=== PATIENT | male | born 1990 | race American Indian/Alaskan Native ===

== ENCOUNTER 2016-08-09 18:14 | Emergency (ER) | payer SELFPAY ==
--- NOTE | 2016-08-09 18:59 | Emergency Department Report ---
Chief Complaint: Fall Stated Complaint: FALL/LIP/HEAD/NECK INJURY Time Seen by Provider: 08/09/16 18:56 - HPI History of Present Illness: 26 state he was outside and slip and fell .pt state he loss consciousness and can not remember anything that happen after the fall .pt state that he call a [employer] spacelift to bring to hospital .pt voice complain of headache .05/18. - ROS Review of Systems: per HPI - Exam Vital Signs: Vital Signs 08/09/16 18:24 Temperature 98.8 F Pulse Rate 84 Respiratory 16 Rate Blood Pressure 109/75 O2 Sat by Pulse 98 Oximetry Physical Exam: GENERAL: The patient is well-developed and well-nourished. Patient is in NAD. HENT: Normocephalic. Atraumatic. Patient has moist mucous membranes. Throat: No erythema, swelling or exudates. EYES: Extraocular motions are intact, PERRL NECK: Supple. No meningitic signs are noted. There is no adenopathy noted. CHEST/LUNGS: Clear to auscultation bilaterally. No wheezing, rales or rhonchi noted. There is no respiratory distress noted. HEART/CARDIOVASCULAR: Regular rate and rhythm. Normal S1 S2. No murmurs, rubs , clicks, or gallops. ABDOMEN: Abdomen is soft, nontender.. Bowel sounds normoactive. There is no abdominal distention. Negative rebound tenderness. Negative Rovsing. : Deferred. SKIN: There is no rash. There is no edema. There is no diaphoresis. NEURO: The patient is A&Ox3. The patient has no focal neurologic deficits. MUSCULOSKELETAL: There is no tenderness or deformity. There is no limitation range of motion. PSYCH: Pt has appropriate mood and affect. MSE screening note: Focused history and physical exam performed. Due to findings the following was ordered: ED Disposition for MSE Condition: Stable
--- NOTE | 2016-08-09 19:58 | Cat Scan Report ---
FINAL REPORT PROCEDURE: CT head without contrast. TECHNIQUE: Computerized tomography of the head was performed without contrast material. HISTORY: Loss of consciousness. COMPARISON: No prior studies are available for comparison. FINDINGS: The ventricles are normal in size. The dhillon matter and white matter appear normal. There are no mass lesions. There is no intracranial hemorrhage. The calvarium appears intact. The mastoid air cells are clear. There is mucosal thickening in the left maxillary sinus. IMPRESSION: Normal study of the brain. Left maxillary sinus mucosal thickening.
[2016-08-09] MEDS ORDERED: PHENERGAN PO ONE (20:25)
[2016-08-09] MEDS ORDERED: PERCOCET 5/325 PO ONE (20:25)
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
--- NOTE | 2016-08-09 21:31 | Cat Scan Report ---
FINAL REPORT PROCEDURE: CT facial bones without contrast. TECHNIQUE: Computerized tomography of the facial bones and soft tissues with axial and coronal sections performed from the cranial aspect of the frontal sinuses to the caudal portion of the mandible without contrast material. HISTORY: Patient fell, facial trauma. COMPARISON: No prior studies are available for comparison. FINDINGS: On the sagittal reformatted images it looks as if there is a transverse fracture through the left mandibular condyle. I think this is probably artifact from movement of the jaw. I cannot be certain however and clinical correlation is recommended. There are no other facial fractures. The orbital contents appear normal. There are no blowout type injuries. There is moderate mucosal thickening in the left maxillary sinus. The facial soft tissues are unremarkable. IMPRESSION: Suspected artifact involving the left mandibular condyle versus transverse fracture. Otherwise normal study.
[2016-08-09 23:58] VITALS: BP 106/56
== END 2016-08-09 23:15 | disposition home or self-care (01) ==
LOC: ED 18:14
DX: S02.610 Fracture of condylar process of mandible, unspecified side (principal); S01.511A Laceration without foreign body of lip, initial encounter; S16.1XXA Strain of muscle, fascia and tendon at neck level, initial encounter; S20.212A Contusion of left front wall of thorax, initial encounter; J45.909 Unspecified asthma, uncomplicated; W01.0XXA Fall on same level from slipping, tripping and stumbling without subsequent striking against object, initial encounter; Y93.9 Activity, unspecified; Y92.9 Unspecified place or not applicable; Y99.9 Unspecified external cause status
CPT/HCPCS: 70450; 70486; Q0169